=== PATIENT | male | born 1995 | race Caucasian/White ===

== ENCOUNTER 2022-03-16 01:21 | Emergency (ER) | payer OTHER ==
[2022-03-16 01:34] VITALS: BP 127/70; PULSE 100; RESP 16; TEMP 97.6; BMI 22.8
== END 2022-03-16 04:25 | disposition home or self-care (01) ==
LOC: JER 01:21
DX: S39.012A Strain of muscle, fascia and tendon of lower back, initial encounter (principal); S86.911A Strain of unspecified muscle(s) and tendon(s) at lower leg level, right leg, initial encounter; S66.911A Strain of unspecified muscle, fascia and tendon at wrist and hand level, right hand, initial encounter; Y99.8 Other external cause status
CPT/HCPCS: 72100-TC-FY; 73130-TC-RT-FY; 73562-TC-RT-FY; 99284-25

== ENCOUNTER 2022-05-18 04:02 | Emergency (ER) | payer OTHER ==
[2022-05-18 04:07] VITALS: BP 147/78; PULSE 74; RESP 14; TEMP 98.2; BMI 27.0
[2022-05-18] MEDS ORDERED: TETRACAINE 0.5% HCL 0.6ML DROPPER.BOTTLE OD ONE (04:16)
[2022-05-18] MEDS ORDERED: FLUORESCEIN NA 1 EA STRIP ONE (04:17)
[2022-05-18] MEDS ORDERED: TETRACAINE 0.5% OPHTH SOLN 2 ML BOTTLE ONE (04:17)
[2022-05-18] MEDS ORDERED: FLUORESCEIN NA 1 EA STRIP OD ONE (04:19)
== END 2022-05-18 04:58 | disposition home or self-care (01) ==
LOC: FER 04:02
DX: Z03.821 Encounter for observation for suspected ingested foreign body ruled out (principal)
CPT/HCPCS: 99283-25

== ENCOUNTER 2022-11-21 01:49 | Emergency (ER) | payer OTHER ==
[2022-11-21 01:54] VITALS: BP 153/110; PULSE 108; RESP 18; TEMP 98.3; BMI 23.6
[2022-11-21] MEDS ORDERED: ACETAMINOPHEN 325 MG TABLET (FP) PO ONE (02:01)
[2022-11-21] MEDS ORDERED: KETOROLAC TROMETHAMINE 30 MG/1 ML VIAL IM ONE (02:01)
[2022-11-21] MEDS ORDERED: KETOROLAC TROMETHAMINE 30 MG/1 ML VIAL ONE (02:07)
[2022-11-21] MEDS ORDERED: ACETAMINOPHEN 325 MG TABLET (FP) ONE (02:07)
== END 2022-11-21 02:15 | disposition home or self-care (01) ==
LOC: FER 01:49
PROC: 3E0233Z Introduction of Anti-inflammatory into Muscle, Percutaneous Approach (ICD-10-PCS; principal; 2022-11-21)
DX: M54.9 Dorsalgia, unspecified (principal)
CPT/HCPCS: 99284-25

== ENCOUNTER 2023-01-11 00:39 | Emergency (ER) | payer OTHER ==
[2023-01-11 00:47] VITALS: BP 137/78; PULSE 117; RESP 19; TEMP 98.3; BMI 24.3
[2023-01-11] MEDS ORDERED: DIPHTH,PERTUSS(ACELL),TET 0.5 ML DISP.SYRIN IM ONE ×2 (01:33→01:35)
[2023-01-11] MEDS ORDERED: IBUPROFEN 600 MG TABLET (FP) PO ONE ×2 (01:33→01:35)
== END 2023-01-11 01:52 | disposition home or self-care (01) ==
LOC: FER 00:39
PROC: 3E0234Z Introduction of Serum, Toxoid and Vaccine into Muscle, Percutaneous Approach (ICD-10-PCS; principal; 2023-01-11)
DX: R22.31 Localized swelling, mass and lump, right upper limb (principal); S60.221A Contusion of right hand, initial encounter; W18.39XA Other fall on same level, initial encounter
CPT/HCPCS: 73130-TC-RT-FY; 90715; 99283-25

== ENCOUNTER 2023-06-05 20:49 | Emergency (ER) | payer OTHER ==
[2023-06-05] MEDS ORDERED: IBUPROFEN 600 MG TABLET (FP) PO ONE ×2 (21:42→21:53)
[2023-06-05 21:52] VITALS: BP 157/92; PULSE 102; RESP 18; TEMP 98; BMI 24.3
== END 2023-06-05 21:55 | disposition home or self-care (01) ==
LOC: FER 20:49
DX: S63.501A Unspecified sprain of right wrist, initial encounter (principal); S60.811A Abrasion of right wrist, initial encounter; Y35.811A Legal intervention involving manhandling, law enforcement official injured, initial encounter
CPT/HCPCS: 73110-TC-RT-FY; 73130-TC-RT-FY; 99283-25

== ENCOUNTER 2023-12-20 19:07 | Emergency (ER) | payer OTHER ==
[2023-12-20 19:22] VITALS: BP 128/54; PULSE 87; RESP 16; TEMP 98.7; BMI 24.3
== END 2023-12-20 20:15 | disposition home or self-care (01) ==
LOC: FER 19:07
DX: S63.636A Sprain of interphalangeal joint of right little finger, initial encounter (principal); S60.312A Abrasion of left thumb, initial encounter; Y30.XXXA Falling, jumping or pushed from a high place, undetermined intent, initial encounter; Y93.01 Activity, walking, marching and hiking; Y35.811A Legal intervention involving manhandling, law enforcement official injured, initial encounter
CPT/HCPCS: 73140-TC-RT-FY; 99283-25

== ENCOUNTER 2024-02-28 21:16 | Emergency (ER) | payer OTHER ==
[2024-02-28 21:29] VITALS: BP 138/89; PULSE 92; RESP 18; TEMP 99.2; BMI 24.3
[2024-02-28] MEDS ORDERED: IBUPROFEN 600 MG TABLET (FP) PO ONE (21:38)
[2024-02-28] MEDS: IBUPROFEN 600 MG TABLET (FP) PO ONE (21:39)
== END 2024-02-28 21:40 | disposition home or self-care (01) ==
LOC: FER 21:16
DX: S00.83XA Contusion of other part of head, initial encounter (principal); Y04.0XXA Assault by unarmed brawl or fight, initial encounter; Y35.811A Legal intervention involving manhandling, law enforcement official injured, initial encounter
CPT/HCPCS: 99283-25

== ENCOUNTER 2024-03-05 19:06 | Emergency (ER) | payer OTHER ==
[2024-03-05 19:19] VITALS: BP 131/80; PULSE 85; RESP 16; TEMP 98.9; BMI 23.6
== END 2024-03-05 20:04 | disposition home or self-care (01) ==
LOC: FER 19:06
DX: S60.415A Abrasion of left ring finger, initial encounter (principal); S60.417A Abrasion of left little finger, initial encounter; Y35.811A Legal intervention involving manhandling, law enforcement official injured, initial encounter
CPT/HCPCS: 99283-25